=== PATIENT | female | born 1990 | race African-American/Black ===

== ENCOUNTER 2021-01-11 15:37 | Inpatient (IN) | payer OTHER ==
[2021-01-11 18:36] VITALS: BMI 41.5
[2021-01-11] MEDS ORDERED: LOPERAMIDE HCL 2 MG CAPSULE PO PRN (22:49)
[2021-01-11] MEDS ORDERED: P-EPHED 60MG/TRIPROLIDI 2.5MG TABLET PO PRN (22:49)
[2021-01-11] MEDS ORDERED: MAGNESIUM HYDROX 2400MG/30ML ORAL SUSPENSION 30 ML CUP PO PRN (22:49)
[2021-01-11] MEDS ORDERED: MAG HYDROX/AL HYDROX/SIMETH 30 ML UNIT-DOSE CUP PO PRN (22:49)
[2021-01-11] MEDS ORDERED: MAGNESIUM CITRATE 300 ML BOTTLE PO PRN (22:49)
[2021-01-11] MEDS ORDERED: ACETAMINOPHEN 325 MG TABLET (FP) PO PRN (22:49)
[2021-01-11] MEDS ORDERED: IBUPROFEN 400 MG TABLET (FP) PO PRN (22:49)
[2021-01-11] MEDS ORDERED: guaiFENesin 200 MG/10 ML 10 ML UNIT-DOSE CUPS PO PRN (22:49)
[2021-01-12] MEDS: PRENATAL VITAMINS W/ FOLIC ACID TABLET (FP) PO SCH (11:11)
[2021-01-12 12:36] LABS: HEMATOCRIT 38.3 % (32.4-45.2); HEMOGLOBIN 12.8 GM/dL (10.7-15.3); MCH 29.5 pg (25.7-33.7); MCHC 33.4 g/dl (32.0-36.0); MEAN CELL VOLUME 88.4 fl (80-96); MEAN PLT VOLUME 9.5 fl (7.5-11.1); PLATELET COUNT 292 10^3/uL (134-434); RBC 4.33 M/mm3 (3.60-5.2); RDW 14.2 % (11.6-15.6); WHITE BLOOD COUNT 8.5 K/mm3 (4.0-10.0)
[2021-01-12 12:41] LABS: ALBUMIN 3.3 g/dl (3.4-5.0); BLOOD UREA NITROGEN 12.7 mg/dL (7-18)
[2021-01-12 12:44] LABS: CREATININE 0.9 mg/dL (0.55-1.3)
[2021-01-12 12:46] LABS: BILIRUBIN,TOTAL 0.4 mg/dL (0.2-1); TOT PROT 6.7 g/dl (6.4-8.2)
[2021-01-12 13:00] LABS: SYPHILIS W/ RPR CONF NON-REACTIVE (NONREACTIVE)
[2021-01-12] MEDS ORDERED: HALOPERIDOL 1 MG TABLET PO ONE (19:35)
[2021-01-12] MEDS ORDERED: OLANZapine 10 MG TABLET PO ONE (22:00)
[2021-01-12] MEDS ORDERED: BENZTROPINE MESYLATE 0.5 MG TABLET (FP) PO ONE (22:00)
[2021-01-12] MEDS: THIAMINE HCL 100 MG TABLET (FP) PO SCH (22:38)
[2021-01-13] MEDS: PRENATAL VITAMINS W/ FOLIC ACID TABLET (FP) PO SCH (10:26)
[2021-01-13] MEDS: NICOTINE 10 MG CARTRIDGE (INHALER) IH PRN (15:30)
[2021-01-13] MEDS: HALOPERIDOL 1 MG TABLET PO SCH (22:08)
[2021-01-13] MEDS: BENZTROPINE MESYLATE 0.5 MG TABLET (FP) PO SCH (22:09)
[2021-01-13] MEDS: THIAMINE HCL 100 MG TABLET (FP) PO SCH (22:09)
[2021-01-13] MEDS ORDERED: OLANZapine 10 MG TABLET PO ONE (23:00)
[2021-01-14] MEDS ORDERED: OLANZapine 10 MG TABLET PO ONE (10:00)
[2021-01-14] MEDS: PRENATAL VITAMINS W/ FOLIC ACID TABLET (FP) PO SCH (10:43)
[2021-01-14] MEDS: HALOPERIDOL 1 MG TABLET PO SCH (10:44)
[2021-01-14] MEDS: BENZTROPINE MESYLATE 0.5 MG TABLET (FP) PO SCH ×2 (10:44→23:45)
[2021-01-14] MEDS: NICOTINE 10 MG CARTRIDGE (INHALER) IH PRN (18:53)
[2021-01-14 20:15] LABS: PH,URINE 6.5 (5.0-8.0); URINE APPEARANCE CLEAR; URINE BILIRUBIN NEGATIVE (NEGATIVE); URINE COLOR YELLOW; URINE GLUCOSE (UA) NEGATIVE (NEGATIVE); URINE KETONE TRACE (NEGATIVE); URINE LEUK ESTERASE NEGATIVE (NEGATIVE); URINE NITRITE NEGATIVE (NEGATIVE); URINE PROTEIN NEGATIVE (NEGATIVE)
[2021-01-14] MEDS: OLANZapine 10 MG TABLET PO SCH (23:45)
[2021-01-14] MEDS: THIAMINE HCL 100 MG TABLET (FP) PO SCH (23:45)
[2021-01-15] MEDS ORDERED: OLANZapine 7.5 MG TABLET PO SCH (10:00)
[2021-01-15] MEDS: PRENATAL VITAMINS W/ FOLIC ACID TABLET (FP) PO SCH (10:31)
[2021-01-15] MEDS: BENZTROPINE MESYLATE 0.5 MG TABLET (FP) PO SCH ×2 (10:31→23:54)
[2021-01-15] MEDS: OLANZAPINE 10 MG, OLANZAPINE 5 MG PO SCH (10:32)
[2021-01-15] MEDS: NICOTINE 10 MG CARTRIDGE (INHALER) IH PRN (12:45)
[2021-01-15] MEDS ORDERED: PT OWN MED DRAWER 7, Y5N ONE (21:31)
[2021-01-15] MEDS: THIAMINE HCL 100 MG TABLET (FP) PO SCH (23:54)
[2021-01-15] MEDS: OLANZapine 10 MG TABLET PO SCH (23:54)
[2021-01-16] MEDS: BENZTROPINE MESYLATE 0.5 MG TABLET (FP) PO SCH ×2 (10:49→21:59)
[2021-01-16] MEDS: OLANZAPINE 10 MG, OLANZAPINE 5 MG PO SCH (10:50)
[2021-01-16] MEDS: PRENATAL VITAMINS W/ FOLIC ACID TABLET (FP) PO SCH (10:50)
[2021-01-16] MEDS: THIAMINE HCL 100 MG TABLET (FP) PO SCH (21:59)
[2021-01-16] MEDS: OLANZapine 10 MG TABLET PO SCH (21:59)
[2021-01-17] MEDS: PRENATAL VITAMINS W/ FOLIC ACID TABLET (FP) PO SCH (11:01)
[2021-01-17] MEDS: BENZTROPINE MESYLATE 0.5 MG TABLET (FP) PO SCH ×2 (11:02→21:47)
[2021-01-17] MEDS: OLANZAPINE 10 MG, OLANZAPINE 5 MG PO SCH (11:05)
[2021-01-17] MEDS ORDERED: PT OWN MED DRAWER 7, Y5N ONE (16:24)
[2021-01-17] MEDS: THIAMINE HCL 100 MG TABLET (FP) PO SCH (21:47)
[2021-01-17] MEDS: OLANZapine 10 MG TABLET PO SCH (21:48)
[2021-01-18] MEDS ORDERED: PT OWN MED DRAWER 7, Y5N ONE (08:36)
[2021-01-18] MEDS: PRENATAL VITAMINS W/ FOLIC ACID TABLET (FP) PO SCH (10:22)
[2021-01-18] MEDS: BENZTROPINE MESYLATE 0.5 MG TABLET (FP) PO SCH ×2 (10:22→21:17)
[2021-01-18] MEDS: OLANZAPINE 10 MG, OLANZAPINE 5 MG PO SCH (10:32)
[2021-01-18] MEDS: OLANZapine 10 MG TABLET PO SCH (21:17)
[2021-01-18] MEDS: THIAMINE HCL 100 MG TABLET (FP) PO SCH (21:17)
[2021-01-19 08:43] VITALS: BP 131/82; PULSE 80; TEMP 96.4
[2021-01-19] MEDS: BENZTROPINE MESYLATE 0.5 MG TABLET (FP) PO SCH ×2 (10:23→21:42)
[2021-01-19] MEDS: PRENATAL VITAMINS W/ FOLIC ACID TABLET (FP) PO SCH (10:23)
[2021-01-19] MEDS: OLANZAPINE 10 MG, OLANZAPINE 5 MG PO SCH (10:24)
[2021-01-19] MEDS: NICOTINE 10 MG CARTRIDGE (INHALER) IH PRN (15:44)
[2021-01-19] MEDS: THIAMINE HCL 100 MG TABLET (FP) PO SCH (21:42)
[2021-01-19] MEDS: OLANZapine 10 MG TABLET PO SCH (21:42)
[2021-01-20] MEDS: NICOTINE 10 MG CARTRIDGE (INHALER) IH PRN (08:31)
[2021-01-20] MEDS: BENZTROPINE MESYLATE 0.5 MG TABLET (FP) PO SCH (10:22)
[2021-01-20] MEDS: OLANZAPINE 10 MG, OLANZAPINE 5 MG PO SCH (10:22)
[2021-01-20] MEDS: PRENATAL VITAMINS W/ FOLIC ACID TABLET (FP) PO SCH (10:22)
== END 2021-01-20 08:47 | disposition left against medical advice (07) | DRG 770 ==
LOC: YASAS 15:37 → Y5N 22:17
PROVIDERS: ADMIT Allergy & Immunology; ATTEND Allergy & Immunology
PROC: HZ42ZZZ Group Counseling for Substance Abuse Treatment, Cognitive-Behavioral (ICD-10-PCS; principal; 2021-01-11)
DX: F14.20 Cocaine dependence, uncomplicated (principal); F16.20 Hallucinogen dependence, uncomplicated; F12.20 Cannabis dependence, uncomplicated; F17.210 Nicotine dependence, cigarettes, uncomplicated; F20.9 Schizophrenia, unspecified; F32.A Depression, unspecified; I10 Essential (primary) hypertension; E66.01 Morbid (severe) obesity due to excess calories; Z68.41 Body mass index [BMI] 40.0-44.9, adult; Z89.021 Acquired absence of right finger(s); Z89.022 Acquired absence of left finger(s); Z89.421 Acquired absence of other right toe(s); Z89.411 Acquired absence of right great toe; Z94.5 Skin transplant status; Z59.01 Sheltered homelessness; Z87.828 Personal history of other (healed) physical injury and trauma
CPT/HCPCS: 36415; 80053; 81003; 81025; 85027; 86780; 86803; 87811; 93005; 93010; C9803; U0003; U0005